=== PATIENT | male | born 1950 | race Caucasian/White ===

== ENCOUNTER 2023-10-10 20:45 | Emergency (ER) | payer MEDICARE, MEDICAID ==
[2023-10-10] MEDS ORDERED: Sodium Chloride 0.9% 10 ML Syringe FLUSH PRN (21:25)
[2023-10-10 21:43] LABS: BASOPHILS PERCENT AUTO 0.1 % (0.0-1.0); EOSINOPHILS PERCENT AUTO 0.4 % (1.0-3.0); HEMATOCRIT 39.9 % (40.0-54.0); HEMOGLOBIN 13.3 g/dL (14.0-18.0); LYMPHOCYTES PERCENT AUTO 13.4 % (20.5-50.1); MEAN CORPUSCULAR HEMOGLOBIN 32.8 pg (27.0-34.0); MEAN CORPUSCULAR HGB CONC 33.3 g/dL (33.0-35.0); MEAN CORPUSCULAR VOLUME 98.3 fL (80-100); MONOCYTES PERCENT AUTO 11.9 % (2-8); NEUTROPHILS PERCENT AUTO 74.2 % (42.2-75.2); PLATELET COUNT,PLT 230 10^3/uL (150-450); RED BLOOD CELL COUNT 4.06 10^6/uL (4.6-6.2); WHITE BLOOD CELL COUNT,WBC 7.8 10^3/uL (5.0-10.0)
[2023-10-10 21:44] LABS: APPEARANCE,URINE CLEAR (CLEAR); BILIRUBIN,URINE NEGATIVE (NEGATIVE); COLOR,URINE YELLOW (YELLOW); GLUCOSE,URINE NEGATIVE (NEGATIVE); KETONES,URINE NEGATIVE (NEGATIVE); LEUKOCYTE ESTERASE,URINE NEGATIVE (NEGATIVE); NITRITE,URINE NEGATIVE (NEGATIVE); OCCULT BLOOD,URINE TRACE-INTACT (NEGATIVE); PROTEIN,URINE NEGATIVE (NEGATIVE); UROBILINOGEN,URINE 0.2 mg/dL (0.2-1.0)
[2023-10-10 22:03] LABS: BACTERIA,URINE FEW /HPF (0-FEW/HPF); EPITHELIAL CELLS,URINE FEW /HPF (NOT SEEN); MUCUS,URINE FEW /LPF (NOT SEEN)
[2023-10-10 22:07] LABS: A/G RATIO 1.1; ALBUMIN 3.8 g/dL (3.4-5.0); ANION GAP 9.1 mEq/L (7-13); BILIRUBIN TOTAL 0.2 mg/dL (0.2-1.0); BUN/CREATININE RATIO 13.8 (No establ ref range); CALCIUM 8.8 mg/dL (8.5-10.1); CREATININE 0.94 mg/dL (0.70-1.30); EST CRCL DRUG DOSING (CG) 65.56 mL/min; MAGNESIUM 2.2 mg/dL (1.8-2.4); POTASSIUM,K 4.1 mmol/L (3.5-5.1); PROTEIN TOTAL,TP 7.3 g/dL (6.4-8.2); TSH ULTRASENSITIVE 0.98 uIU/mL (0.36-3.74)
[2023-10-10 23:04] LABS: CORONAVIRUS COVID-19 NAA NEGATIVE (NEGATIVE); INFLUENZA A NAA NEGATIVE (NEGATIVE); INFLUENZA B NAA NEGATIVE (NEGATIVE)
== END 2023-10-10 22:41 | disposition home or self-care (01) ==
LOC: DL.ED 20:45
DX: F03.B0 Unspecified dementia, moderate, without behavioral disturbance, psychotic disturbance, mood disturbance, and anxiety (principal); Z88.0 Allergy status to penicillin; Z88.8 Allergy status to other drugs, medicaments and biological substances; Z20.822 Contact with and (suspected) exposure to COVID-19
CPT/HCPCS: 0240U; 36415; 80053; 81001; 82140; 83735; 84443; 85025; 99284; 99285; J3490

== ENCOUNTER 2023-10-19 08:32 | Inpatient (IN) | payer MEDICARE, MEDICAID ==
[2023-10-19] MEDS ORDERED: Sodium Chloride 0.9% 10 ML Syringe FLUSH PRN (08:39)
[2023-10-19 09:09] LABS: BASOPHILS PERCENT AUTO 0.3 % (0.0-1.0); EOSINOPHILS PERCENT AUTO 0.9 % (1.0-3.0); HEMATOCRIT 42.8 % (40.0-54.0); HEMOGLOBIN 13.9 g/dL (14.0-18.0); LYMPHOCYTES PERCENT AUTO 21.6 % (20.5-50.1); MEAN CORPUSCULAR HEMOGLOBIN 32.5 pg (27.0-34.0); MEAN CORPUSCULAR HGB CONC 32.5 g/dL (33.0-35.0); MONOCYTES PERCENT AUTO 11.7 % (2-8); NEUTROPHILS PERCENT AUTO 65.5 % (42.2-75.2); PLATELET COUNT,PLT 239 10^3/uL (150-450); RED BLOOD CELL COUNT 4.28 10^6/uL (4.6-6.2); WHITE BLOOD CELL COUNT,WBC 5.8 10^3/uL (5.0-10.0)
[2023-10-19 09:27] LABS: ALANINE AMINOTRANSFERASE,ALT 16 U/L (16-63); ALBUMIN 3.8 g/dL (3.4-5.0); ALKALINE PHOSPHATASE 120 U/L (46-116); ASPARTATE AMNIOTRANSFERASE,AST 12 U/L (15-37); BILIRUBIN TOTAL 0.4 mg/dL (0.2-1.0); BLOOD UREA NITROGEN,BUN 15 mg/dL (7-18); BUN/CREATININE RATIO 16.7 (No establ ref range); CARBON DIOXIDE,CO2 28 mmol/L (21-32); CHLORIDE,CL 102 mmol/L (98-107); GLUCOSE RANDOM 119 mg/dL (70-99); PROTEIN TOTAL,TP 7.6 g/dL (6.4-8.2); SODIUM,NA 139 mmol/L (136-145)
[2023-10-19 09:28] LABS: ESTIMATED GFR 90 mL/min (>=60); ETHANOL BLOOD MEDICAL < 3 mg/dL (0)
[2023-10-19 10:12] LABS: METHAMPHETAMINES,URINE NEGATIVE (NEGATIVE)
[2023-10-19 10:13] LABS: AMPHETAMINES,URINE NEGATIVE (NEGATIVE); BARBITURATES,URINE POSITIVE (NEGATIVE); BENZODIAZEPINE,URINE NEGATIVE (NEGATIVE); MDMA (ECSTASY), URINE NEGATIVE (NEGATIVE); METHADONE,URINE NEGATIVE (NEGATIVE); OPIATES,URINE NEGATIVE (NEGATIVE); OXYCODONE,URINE NEGATIVE (NEGATIVE); PHENCYCLIDINE,URINE NEGATIVE (NEGATIVE); TCA,URINE NEGATIVE (NEGATIVE)
[2023-10-19 10:43] LABS: APPEARANCE,URINE CLEAR (CLEAR); BILIRUBIN,URINE NEGATIVE (NEGATIVE); COLOR,URINE YELLOW (YELLOW); GLUCOSE,URINE NEGATIVE (NEGATIVE); KETONES,URINE NEGATIVE (NEGATIVE); LEUKOCYTE ESTERASE,URINE NEGATIVE (NEGATIVE); NITRITE,URINE NEGATIVE (NEGATIVE); OCCULT BLOOD,URINE TRACE-INTACT (NEGATIVE); PH,URINE 6.5 (5.0-9.0); PROTEIN,URINE NEGATIVE (NEGATIVE); UROBILINOGEN,URINE 0.2 mg/dL (0.2-1.0)
[2023-10-19 10:58] LABS: BACTERIA,URINE FEW /HPF (0-FEW/HPF); EPITHELIAL CELLS,URINE RARE /HPF (NOT SEEN); HYALINE CASTS,URINE RARE; MUCUS,URINE FEW /LPF (NOT SEEN); RBC,URINE 0-5 /HPF (0-5); WBC,URINE NOT SEEN /HPF (0-5/HPF)
[2023-10-19] MEDS ORDERED: OLANZapine 10 MG Vial IM ONE (11:21)
[2023-10-19] MEDS ORDERED: Polyethylene Glycol 3350 Powder 17 GM Packet PO PRN (12:20)
[2023-10-19] MEDS ORDERED: HYDROmorphone 0.5 MG/0.5 ML Syringe IVPUSH PRN (12:20)
[2023-10-19] MEDS ORDERED: Ondansetron 4 MG/2 ML SDV IVPUSH PRN (12:20)
[2023-10-19] MEDS ORDERED: Bisacodyl 5 MG Tab PO PRN (12:20)
[2023-10-19] MEDS ORDERED: Naloxone 2 MG/2 ML Syringe IVPUSH PRN (12:20)
[2023-10-19] MEDS ORDERED: Albuterol/Ipratropium 3.0-0.5 MG/3 ML Neb Soln NEB PRN (12:20)
[2023-10-19] MEDS ORDERED: Magnesium Hydroxide 400 MG/5 ML Susp 30 ML Cup PO PRN (12:20)
[2023-10-19] MEDS ORDERED: MVI, Adult with Vitamin K 10 ML, Folic Acid 1 MG, Thiamine 100 MG in Lactated Ringers 1... IV ONE ×4 (12:23)
[2023-10-19] MEDS ORDERED: Thiamine 100 MG in Sodium Chloride 0.9% 100 ML IV ONE (12:26)
[2023-10-19] MEDS ORDERED: Metoprolol Tartrate 5 MG/5 ML SDV IVPUSH PRN (12:29)
[2023-10-19] MEDS ORDERED: hydrALAZINE 20 MG/ML SDV IVPUSH PRN (12:29)
[2023-10-19 13:01] LABS: T4 FREE 1.14 ng/dL (0.76-1.46); TSH ULTRASENSITIVE 0.61 uIU/mL (0.36-3.74)
[2023-10-20] MEDS: Sodium Chloride 0.9% 1,000 ML IV SCH ×2 (00:14→13:39)
[2023-10-20 06:32] LABS: BASOPHILS PERCENT AUTO 0.2 % (0.0-1.0); EOSINOPHILS PERCENT AUTO 1.3 % (1.0-3.0); HEMATOCRIT 39.3 % (40.0-54.0); HEMOGLOBIN 12.6 g/dL (14.0-18.0); LYMPHOCYTES PERCENT AUTO 25.5 % (20.5-50.1); MEAN CORPUSCULAR HEMOGLOBIN 32.5 pg (27.0-34.0); MEAN CORPUSCULAR HGB CONC 32.1 g/dL (33.0-35.0); MEAN CORPUSCULAR VOLUME 101.3 fL (80-100); MONOCYTES PERCENT AUTO 10.6 % (2-8); NEUTROPHILS PERCENT AUTO 62.4 % (42.2-75.2); PLATELET COUNT,PLT 210 10^3/uL (150-450); RED BLOOD CELL COUNT 3.88 10^6/uL (4.6-6.2); WHITE BLOOD CELL COUNT,WBC 6.1 10^3/uL (5.0-10.0)
[2023-10-20 06:55] LABS: ALBUMIN 3.1 g/dL (3.4-5.0); ANION GAP 8.1 mEq/L (7-13); BILIRUBIN TOTAL 0.3 mg/dL (0.2-1.0); BUN/CREATININE RATIO 16.9 (No establ ref range); CALCIUM 8.5 mg/dL (8.5-10.1); CREATININE 0.83 mg/dL (0.70-1.30); EST CRCL DRUG DOSING (CG) 71.09 mL/min; POTASSIUM,K 4.1 mmol/L (3.5-5.1); PROTEIN TOTAL,TP 6.3 g/dL (6.4-8.2)
[2023-10-20 06:58] LABS: A/G RATIO 0.97
[2023-10-20] MEDS: Cholecalciferol (Vitamin D3) 25 MCG Tab PO SCH (08:25)
[2023-10-20] MEDS: Escitalopram 10 MG Tab PO SCH (08:25)
[2023-10-20] MEDS ORDERED: risperiDONE 0.5 MG Tab PO ONE (11:39)
[2023-10-20] MEDS ORDERED: PHENYTOIN 100 MG/4 ML PO SCH (21:00)
[2023-10-20] MEDS: Thiamine 100 MG Tab PO SCH (21:22)
[2023-10-20] MEDS: risperiDONE 0.5 MG Tab PO SCH (21:22)
[2023-10-20] MEDS: Multivitamin Tab PO SCH (21:22)
[2023-10-20] MEDS: PHENYTOIN 100 MG/4 ML PO SCH (23:31)
[2023-10-21 06:38] LABS: BASOPHILS PERCENT AUTO 0.2 % (0.0-1.0); EOSINOPHILS PERCENT AUTO 1.7 % (1.0-3.0); HEMATOCRIT 38.3 % (40.0-54.0); HEMOGLOBIN 12.6 g/dL (14.0-18.0); LYMPHOCYTES PERCENT AUTO 23.8 % (20.5-50.1); MEAN CORPUSCULAR HEMOGLOBIN 33.3 pg (27.0-34.0); MEAN CORPUSCULAR HGB CONC 32.9 g/dL (33.0-35.0); MEAN CORPUSCULAR VOLUME 101.3 fL (80-100); MONOCYTES PERCENT AUTO 11.1 % (2-8); NEUTROPHILS PERCENT AUTO 63.2 % (42.2-75.2); PLATELET COUNT,PLT 217 10^3/uL (150-450); RED BLOOD CELL COUNT 3.78 10^6/uL (4.6-6.2)
[2023-10-21 07:07] LABS: ALBUMIN 3.1 g/dL (3.4-5.0); ANION GAP 10.2 mEq/L (7-13); BILIRUBIN TOTAL 0.3 mg/dL (0.2-1.0); BUN/CREATININE RATIO 16.5 (No establ ref range); CALCIUM 8.6 mg/dL (8.5-10.1); CREATININE 0.79 mg/dL (0.70-1.30); EST CRCL DRUG DOSING (CG) 74.69 mL/min; MAGNESIUM 2.1 mg/dL (1.8-2.4); POTASSIUM,K 4.2 mmol/L (3.5-5.1); PROTEIN TOTAL,TP 6.4 g/dL (6.4-8.2)
[2023-10-21 07:09] LABS: A/G RATIO 0.94
[2023-10-21] MEDS: Multivitamin Tab PO SCH (08:48)
[2023-10-21] MEDS: risperiDONE 0.5 MG Tab PO SCH ×2 (08:48→20:11)
[2023-10-21] MEDS: Escitalopram 10 MG Tab PO SCH (08:48)
[2023-10-21] MEDS: PHENYTOIN 100 MG/4 ML PO SCH ×2 (08:48→22:12)
[2023-10-21] MEDS: Cholecalciferol (Vitamin D3) 25 MCG Tab PO SCH (08:48)
[2023-10-21] MEDS ORDERED: Haloperidol Lactate 5 MG/ML SDV IM ONE (11:04)
[2023-10-21] MEDS ORDERED: LORazepam 2 MG/ML SDV IVPUSH PRN (12:37)
[2023-10-21] MEDS ORDERED: Flumazenil 0.1 MG/ML 5 ML MDV IVPUSH PRN (12:38)
[2023-10-21] MEDS: Thiamine 100 MG Tab PO SCH (20:11)
[2023-10-22 06:33] LABS: BASOPHILS PERCENT AUTO 0.2 % (0.0-1.0); EOSINOPHILS PERCENT AUTO 1.4 % (1.0-3.0); HEMATOCRIT 38.2 % (40.0-54.0); HEMOGLOBIN 12.4 g/dL (14.0-18.0); LYMPHOCYTES PERCENT AUTO 23.8 % (20.5-50.1); MEAN CORPUSCULAR HEMOGLOBIN 32.8 pg (27.0-34.0); MEAN CORPUSCULAR HGB CONC 32.5 g/dL (33.0-35.0); MEAN CORPUSCULAR VOLUME 101.1 fL (80-100); MONOCYTES PERCENT AUTO 11.3 % (2-8); NEUTROPHILS PERCENT AUTO 63.3 % (42.2-75.2); PLATELET COUNT,PLT 213 10^3/uL (150-450); RED BLOOD CELL COUNT 3.78 10^6/uL (4.6-6.2); WHITE BLOOD CELL COUNT,WBC 6.6 10^3/uL (5.0-10.0)
[2023-10-22 06:54] LABS: ALBUMIN 3.1 g/dL (3.4-5.0); ANION GAP 7.5 mEq/L (7-13); BILIRUBIN TOTAL 0.3 mg/dL (0.2-1.0); BUN/CREATININE RATIO 20.2 (No establ ref range); CALCIUM 8.6 mg/dL (8.5-10.1); CREATININE 0.84 mg/dL (0.70-1.30); EST CRCL DRUG DOSING (CG) 70.25 mL/min; MAGNESIUM 2.1 mg/dL (1.8-2.4); POTASSIUM,K 4.5 mmol/L (3.5-5.1); PROTEIN TOTAL,TP 6.5 g/dL (6.4-8.2)
[2023-10-22 07:01] LABS: A/G RATIO 0.91
[2023-10-22] MEDS: Multivitamin Tab PO SCH (09:45)
[2023-10-22] MEDS: Cholecalciferol (Vitamin D3) 25 MCG Tab PO SCH (09:45)
[2023-10-22] MEDS: Escitalopram 10 MG Tab PO SCH (09:45)
[2023-10-22] MEDS: risperiDONE 0.5 MG Tab PO SCH ×2 (09:46→20:38)
[2023-10-22] MEDS: PHENYTOIN 100 MG/4 ML PO SCH ×2 (09:46→20:40)
[2023-10-22] MEDS: Thiamine 100 MG Tab PO SCH (20:38)
[2023-10-23] MEDS: Acetaminophen 325 MG Tab PO PRN ×2 (05:24→14:50)
[2023-10-23 06:31] LABS: BASOPHILS PERCENT AUTO 0.2 % (0.0-1.0); EOSINOPHILS PERCENT AUTO 0.4 % (1.0-3.0); HEMATOCRIT 41.9 % (40.0-54.0); HEMOGLOBIN 13.7 g/dL (14.0-18.0); LYMPHOCYTES PERCENT AUTO 10.4 % (20.5-50.1); MEAN CORPUSCULAR HEMOGLOBIN 32.9 pg (27.0-34.0); MEAN CORPUSCULAR HGB CONC 32.7 g/dL (33.0-35.0); MEAN CORPUSCULAR VOLUME 100.5 fL (80-100); MONOCYTES PERCENT AUTO 11.1 % (2-8); NEUTROPHILS PERCENT AUTO 77.9 % (42.2-75.2); PLATELET COUNT,PLT 227 10^3/uL (150-450); RED BLOOD CELL COUNT 4.17 10^6/uL (4.6-6.2); WHITE BLOOD CELL COUNT,WBC 9.2 10^3/uL (5.0-10.0)
[2023-10-23 06:53] LABS: A/G RATIO 0.9; ALBUMIN 3.7 g/dL (3.4-5.0); ANION GAP 11.5 mEq/L (7-13); BILIRUBIN TOTAL 0.3 mg/dL (0.2-1.0); BUN/CREATININE RATIO 18.9 (No establ ref range); CALCIUM 9.1 mg/dL (8.5-10.1); CREATININE 0.9 mg/dL (0.70-1.30); EST CRCL DRUG DOSING (CG) 65.57 mL/min; POTASSIUM,K 4.5 mmol/L (3.5-5.1); PROTEIN TOTAL,TP 7.6 g/dL (6.4-8.2)
[2023-10-23] MEDS: Cholecalciferol (Vitamin D3) 25 MCG Tab PO SCH (08:42)
[2023-10-23] MEDS: Escitalopram 10 MG Tab PO SCH (08:42)
[2023-10-23] MEDS: Multivitamin Tab PO SCH (08:42)
[2023-10-23] MEDS: risperiDONE 0.5 MG Tab PO SCH ×2 (08:42→21:47)
[2023-10-23] MEDS: PHENYTOIN 100 MG/4 ML PO SCH ×2 (08:54→21:49)
[2023-10-23] MEDS ORDERED: Ibuprofen 600 MG Tab PO ONE (17:58)
[2023-10-23] MEDS: Melatonin 3 MG Tab PO PRN (21:47)
[2023-10-23] MEDS: Thiamine 100 MG Tab PO SCH (21:47)
[2023-10-24] MEDS: Escitalopram 10 MG Tab PO SCH (08:09)
[2023-10-24] MEDS: Cholecalciferol (Vitamin D3) 25 MCG Tab PO SCH (08:09)
[2023-10-24] MEDS: risperiDONE 0.5 MG Tab PO SCH ×2 (08:09→20:28)
[2023-10-24] MEDS: Multivitamin Tab PO SCH (08:09)
[2023-10-24] MEDS: PHENYTOIN 100 MG/4 ML PO SCH ×2 (08:16→20:29)
[2023-10-24] MEDS: Melatonin 3 MG Tab PO PRN (20:29)
[2023-10-24] MEDS: Thiamine 100 MG Tab PO SCH (20:29)
[2023-10-25] MEDS: PHENYTOIN 100 MG/4 ML PO SCH ×2 (08:01→20:00)
[2023-10-25] MEDS: risperiDONE 0.5 MG Tab PO SCH (08:02)
[2023-10-25] MEDS: Escitalopram 10 MG Tab PO SCH (08:02)
[2023-10-25] MEDS: Cholecalciferol (Vitamin D3) 25 MCG Tab PO SCH (08:02)
[2023-10-25] MEDS: Multivitamin Tab PO SCH (08:02)
[2023-10-25] MEDS ORDERED: risperiDONE 0.5 MG Tab PO ONE (17:43)
[2023-10-25] MEDS: Thiamine 100 MG Tab PO SCH (20:00)
[2023-10-25] MEDS: LORazepam 1 MG Tab PO PRN (20:00)
[2023-10-25] MEDS: Melatonin 3 MG Tab PO PRN (20:00)
[2023-10-25] MEDS: traMADol 50 MG Tab PO PRN (20:00)
[2023-10-25] MEDS ORDERED: risperiDONE 0.5 MG Tab PO SCH (21:00)
[2023-10-26 06:28] LABS: BASOPHILS PERCENT AUTO 0.3 % (0.0-1.0); EOSINOPHILS PERCENT AUTO 0.7 % (1.0-3.0); HEMATOCRIT 34.8 % (40.0-54.0); HEMOGLOBIN 11.4 g/dL (14.0-18.0); LYMPHOCYTES PERCENT AUTO 17.1 % (20.5-50.1); MEAN CORPUSCULAR HEMOGLOBIN 33.2 pg (27.0-34.0); MEAN CORPUSCULAR HGB CONC 32.8 g/dL (33.0-35.0); MEAN CORPUSCULAR VOLUME 101.5 fL (80-100); MONOCYTES PERCENT AUTO 13.3 % (2-8); NEUTROPHILS PERCENT AUTO 68.6 % (42.2-75.2); PLATELET COUNT,PLT 200 10^3/uL (150-450); RED BLOOD CELL COUNT 3.43 10^6/uL (4.6-6.2)
[2023-10-26 06:49] LABS: ALBUMIN 2.7 g/dL (3.4-5.0); ANION GAP 9.6 mEq/L (7-13); BILIRUBIN TOTAL 0.3 mg/dL (0.2-1.0); BUN/CREATININE RATIO 27.3 (No establ ref range); CALCIUM 8.5 mg/dL (8.5-10.1); CREATININE 0.88 mg/dL (0.70-1.30); EST CRCL DRUG DOSING (CG) 67.06 mL/min; MAGNESIUM 1.9 mg/dL (1.8-2.4); POTASSIUM,K 4.6 mmol/L (3.5-5.1); PROTEIN TOTAL,TP 6.4 g/dL (6.4-8.2)
[2023-10-26 06:56] LABS: A/G RATIO 0.73
[2023-10-26] MEDS: PHENYTOIN 100 MG/4 ML PO SCH ×2 (08:28→20:50)
[2023-10-26] MEDS: Cholecalciferol (Vitamin D3) 25 MCG Tab PO SCH (08:28)
[2023-10-26] MEDS: Escitalopram 10 MG Tab PO SCH (08:28)
[2023-10-26] MEDS: Multivitamin Tab PO SCH (08:29)
[2023-10-26] MEDS: Acetaminophen 325 MG Tab PO PRN (08:35)
[2023-10-26] MEDS ORDERED: Naproxen 250 MG Tab PO PRN (08:56)
[2023-10-26] MEDS ORDERED: risperiDONE 0.5 MG Tab PO SCH (09:00)
[2023-10-26] MEDS: Famotidine 20 MG Tab PO SCH ×2 (09:33→20:49)
[2023-10-26] MEDS: risperiDONE 1 MG Tab PO SCH (20:48)
[2023-10-26] MEDS: LORazepam 1 MG Tab PO PRN (20:48)
[2023-10-26] MEDS: Melatonin 3 MG Tab PO PRN (20:49)
[2023-10-26] MEDS: Thiamine 100 MG Tab PO SCH (20:49)
[2023-10-26] MEDS: traMADol 50 MG Tab PO PRN (20:49)
[2023-10-27] MEDS: risperiDONE 1 MG Tab PO SCH ×2 (09:05→21:01)
[2023-10-27] MEDS: Famotidine 20 MG Tab PO SCH ×2 (09:05→20:58)
[2023-10-27] MEDS: Escitalopram 10 MG Tab PO SCH (09:05)
[2023-10-27] MEDS: Cholecalciferol (Vitamin D3) 25 MCG Tab PO SCH (09:06)
[2023-10-27] MEDS: Multivitamin Tab PO SCH (09:06)
[2023-10-27] MEDS: PHENYTOIN 100 MG/4 ML PO SCH ×2 (09:07→20:59)
[2023-10-27] MEDS: traMADol 50 MG Tab PO PRN (20:57)
[2023-10-27] MEDS: Thiamine 100 MG Tab PO SCH (20:58)
[2023-10-27] MEDS: LORazepam 1 MG Tab PO PRN (20:58)
[2023-10-27] MEDS: Melatonin 3 MG Tab PO PRN (21:06)
[2023-10-28] MEDS: Multivitamin Tab PO SCH (08:25)
[2023-10-28] MEDS: Escitalopram 10 MG Tab PO SCH (08:25)
[2023-10-28] MEDS: Famotidine 20 MG Tab PO SCH ×2 (08:25→20:02)
[2023-10-28] MEDS: PHENYTOIN 100 MG/4 ML PO SCH ×2 (08:25→20:03)
[2023-10-28] MEDS: risperiDONE 1 MG Tab PO SCH ×2 (08:25→20:02)
[2023-10-28] MEDS: Cholecalciferol (Vitamin D3) 25 MCG Tab PO SCH (08:25)
[2023-10-28] MEDS: traMADol 50 MG Tab PO PRN (20:02)
[2023-10-28] MEDS: Thiamine 100 MG Tab PO SCH (20:02)
[2023-10-28] MEDS: LORazepam 1 MG Tab PO PRN (20:03)
[2023-10-28] MEDS: Melatonin 3 MG Tab PO PRN (20:03)
[2023-10-29] MEDS: Multivitamin Tab PO SCH (09:13)
[2023-10-29] MEDS: risperiDONE 1 MG Tab PO SCH ×2 (09:13→20:05)
[2023-10-29] MEDS: Escitalopram 10 MG Tab PO SCH (09:13)
[2023-10-29] MEDS: Cholecalciferol (Vitamin D3) 25 MCG Tab PO SCH (09:14)
[2023-10-29] MEDS: Famotidine 20 MG Tab PO SCH ×2 (09:14→20:05)
[2023-10-29] MEDS: PHENYTOIN 100 MG/4 ML PO SCH ×2 (09:16→20:06)
[2023-10-29] MEDS: LORazepam 1 MG Tab PO PRN (20:04)
[2023-10-29] MEDS: traMADol 50 MG Tab PO PRN (20:05)
[2023-10-29] MEDS: Melatonin 3 MG Tab PO PRN (20:05)
[2023-10-29] MEDS: Thiamine 100 MG Tab PO SCH (20:05)
[2023-10-30] MEDS: Acetaminophen 325 MG Tab PO PRN (08:42)
[2023-10-30] MEDS: risperiDONE 1 MG Tab PO SCH ×2 (08:43→20:15)
[2023-10-30] MEDS: Famotidine 20 MG Tab PO SCH ×2 (08:43→20:14)
[2023-10-30] MEDS: Escitalopram 10 MG Tab PO SCH (08:44)
[2023-10-30] MEDS: Cholecalciferol (Vitamin D3) 25 MCG Tab PO SCH (08:44)
[2023-10-30] MEDS: Multivitamin Tab PO SCH (08:44)
[2023-10-30] MEDS: PHENYTOIN 100 MG/4 ML PO SCH ×2 (08:44→20:15)
[2023-10-30] MEDS: Thiamine 100 MG Tab PO SCH (20:15)
[2023-10-31] MEDS: risperiDONE 1 MG Tab PO SCH (10:13)
[2023-10-31] MEDS: Famotidine 20 MG Tab PO SCH (10:14)
[2023-10-31] MEDS: Escitalopram 10 MG Tab PO SCH (10:14)
[2023-10-31] MEDS: Multivitamin Tab PO SCH (10:14)
[2023-10-31] MEDS: Cholecalciferol (Vitamin D3) 25 MCG Tab PO SCH (10:14)
[2023-10-31] MEDS: PHENYTOIN 100 MG/4 ML PO SCH (10:16)
== END 2023-10-31 13:40 | disposition other institution (70) | DRG 885 ==
LOC: DL.ED 08:32 → DL.MS 11:33 → DL.ED 11:49 → OBSVTOIN 10-21 12:27
PROVIDERS: ADMIT Internal Medicine; ATTEND Internal Medicine
DX: F23 Brief psychotic disorder (principal); R41.0 Disorientation, unspecified; G92.8 Other toxic encephalopathy; F22 Delusional disorders; Z88.8 Allergy status to other drugs, medicaments and biological substances; T42.0X5A Adverse effect of hydantoin derivatives, initial encounter; I10 Essential (primary) hypertension; G89.29 Other chronic pain; M54.9 Dorsalgia, unspecified; Z66 Do not resuscitate; G40.909 Epilepsy, unspecified, not intractable, without status epilepticus; F32.A Depression, unspecified; R62.50 Unspecified lack of expected normal physiological development in childhood; M17.0 Bilateral primary osteoarthritis of knee; R73.9 Hyperglycemia, unspecified; F41.9 Anxiety disorder, unspecified; F17.210 Nicotine dependence, cigarettes, uncomplicated; F03.B0 Unspecified dementia, moderate, without behavioral disturbance, psychotic disturbance, mood disturbance, and anxiety; Z88.0 Allergy status to penicillin; Z98.49 Cataract extraction status, unspecified eye; Z88.6 Allergy status to analgesic agent; Z79.899 Other long term (current) drug therapy
CPT/HCPCS: 36415; 70450; 73560-LT; 73560-RT; 80053; 80185; 80305-QW; 80307; 81001; 82140; 82306; 83735; 84439; 84443; 85025; 96365; 96366; 96367; 96372; 97161-GP; 97165-GO; 99222; 99232; 99238; 99285; A9270-GY; G0378; J1630; J2405; J3411; J3490; J7030; J7120; U0002

== ENCOUNTER 2023-11-12 13:53 | Emergency (ER) | payer MEDICARE, MEDICAID ==
[~2023-11-12 13:53] MED LIST: Sodium Chloride 0.9% 10 ML Syringe FLUSH PRN
[2023-11-12 14:09] LABS: HEMATOCRIT 37.8 % (40.0-54.0); HEMOGLOBIN 12.1 g/dL (14.0-18.0); MEAN CORPUSCULAR HEMOGLOBIN 32.5 pg (27.0-34.0); MEAN CORPUSCULAR VOLUME 101.6 fL (80-100); PLATELET COUNT,PLT 243 10^3/uL (150-450); RED BLOOD CELL COUNT 3.72 10^6/uL (4.6-6.2); WHITE BLOOD CELL COUNT,WBC 4.9 10^3/uL (5.0-10.0)
[2023-11-12 14:11] LABS: BASOPHILS PERCENT AUTO 0.4 % (0.0-1.0); EOSINOPHILS PERCENT AUTO 3.1 % (1.0-3.0); LYMPHOCYTES PERCENT AUTO 24.2 % (20.5-50.1); MONOCYTES PERCENT AUTO 12.2 % (2-8); NEUTROPHILS PERCENT AUTO 60.1 % (42.2-75.2)
[2023-11-12 14:28] LABS: ALANINE AMINOTRANSFERASE,ALT 34 U/L (16-63); ALBUMIN 3.4 g/dL (3.4-5.0); ALKALINE PHOSPHATASE 105 U/L (46-116); ASPARTATE AMNIOTRANSFERASE,AST 21 U/L (15-37); BILIRUBIN TOTAL 0.3 mg/dL (0.2-1.0); BLOOD UREA NITROGEN,BUN 17 mg/dL (7-18); BUN/CREATININE RATIO 16.8 (No establ ref range); CALCIUM 8.4 mg/dL (8.5-10.1); CARBON DIOXIDE,CO2 32 mmol/L (21-32); CHLORIDE,CL 101 mmol/L (98-107); CREATININE 1.01 mg/dL (0.70-1.30); EST CRCL DRUG DOSING (CG) 65.14 mL/min; GLUCOSE RANDOM 167 mg/dL (70-99); PROTEIN TOTAL,TP 6.9 g/dL (6.4-8.2); SODIUM,NA 138 mmol/L (136-145)
[2023-11-12] MEDS ORDERED: fentaNYL 100 MCG/2 ML SDV IVPUSH ONE (14:30)
[2023-11-12] MEDS ORDERED: Ondansetron 4 MG/2 ML SDV IV ONE (14:30)
[2023-11-12 14:31] LABS: LACTIC ACID 1.6 mmol/L (0.4-2.0)
[2023-11-12 14:35] LABS: ESTIMATED GFR 79 mL/min (>=60)
[2023-11-12 14:41] LABS: APPEARANCE,URINE CLEAR (CLEAR); BILIRUBIN,URINE NEGATIVE (NEGATIVE); COLOR,URINE YELLOW (YELLOW); GLUCOSE,URINE NEGATIVE (NEGATIVE); KETONES,URINE NEGATIVE (NEGATIVE); LEUKOCYTE ESTERASE,URINE NEGATIVE (NEGATIVE); NITRITE,URINE NEGATIVE (NEGATIVE); OCCULT BLOOD,URINE TRACE-INTACT (NEGATIVE); PROTEIN,URINE NEGATIVE (NEGATIVE); UROBILINOGEN,URINE 0.2 mg/dL (0.2-1.0)
[2023-11-12 14:49] LABS: AMPHETAMINES,URINE NEGATIVE (NEGATIVE); BARBITURATES,URINE POSITIVE (NEGATIVE); BENZODIAZEPINE,URINE NEGATIVE (NEGATIVE); MDMA (ECSTASY), URINE NEGATIVE (NEGATIVE); METHADONE,URINE NEGATIVE (NEGATIVE); METHAMPHETAMINES,URINE NEGATIVE (NEGATIVE); OPIATES,URINE NEGATIVE (NEGATIVE); OXYCODONE,URINE NEGATIVE (NEGATIVE); PHENCYCLIDINE,URINE NEGATIVE (NEGATIVE); TCA,URINE NEGATIVE (NEGATIVE)
[2023-11-12 14:57] LABS: BAND PERCENT MAN 3 %; EOSINOPHILS PERCENT MAN 4 % (1-3); LYMPHOCYTES PERCENT MAN 24 % (20-50); MONOCYTES PERCENT MAN 6 % (2-8); SEG NEUTROPHILS PERCENT MAN 63 % (42-75)
[2023-11-12 15:03] LABS: INR 1.1 (0.9-1.2); PROTHROMBIN TIME 11.4 SEC (9.0-12.0); PTT,PARTIAL THROMBOPLSTIN TIME 28.3 SEC (22.0-34.0)
[2023-11-12 15:05] LABS: BACTERIA,URINE RARE /HPF (0-FEW/HPF); EPITHELIAL CELLS,URINE NOT SEEN /HPF (NOT SEEN); RBC,URINE 0-5 /HPF (0-5); WBC,URINE 0-5 /HPF (0-5/HPF)
== END 2023-11-12 15:19 ==
LOC: DL.ED 13:53
DX: S72.002A Fracture of unspecified part of neck of left femur, initial encounter for closed fracture (principal); S09.90XA Unspecified injury of head, initial encounter; I10 Essential (primary) hypertension; Z79.899 Other long term (current) drug therapy; Z79.82 Long term (current) use of aspirin; Z88.0 Allergy status to penicillin; W18.30XA Fall on same level, unspecified, initial encounter; Y92.129 Unspecified place in nursing home as the place of occurrence of the external cause
CPT/HCPCS: 36415; 70450; 71045; 72125; 73562-LT; 80053; 80305-QW; 81001; 82947; 83605; 84145; 85025; 85610; 85730; 96374; 96375; 99284; 99285-25; J2405; J3010; J3490